=== PATIENT | male | born 1975 | race American Indian/Alaskan Native ===

== ENCOUNTER 2021-12-18 17:38 | Emergency (ER) | payer SELFPAY ==
[2021-12-18] MEDS ORDERED: KETOROLAC 10 MG TAB PO ONE (19:44)
[2021-12-18] MEDS ORDERED: DEXAMETHASONE 4 MG TAB PO ONE (19:44)
[2021-12-18] MEDS ORDERED: CYCLOBENZAPRINE 10 MG TAB PO ONE (19:45)
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
[2021-12-18 21:28] VITALS: BP 116/59
== END 2021-12-18 21:45 | disposition home or self-care (01) ==
LOC: ED 17:38
DX: M54.12 Radiculopathy, cervical region (principal); F17.220 Nicotine dependence, chewing tobacco, uncomplicated; Z79.899 Other long term (current) drug therapy; Z87.442 Personal history of urinary calculi; V87.7XXA Person injured in collision between other specified motor vehicles (traffic), initial encounter; Y93.89 Activity, other specified; Y92.488 Other paved roadways as the place of occurrence of the external cause; Y99.8 Other external cause status
CPT/HCPCS: 70450; 72125; 99283; J8540